=== PATIENT | male | born 1970 | race Caucasian/White ===

== ENCOUNTER 2017-03-18 17:35 | Emergency (ER) | payer MEDICAID ==
[~2017-03-18] VITALS: Ht 165.1 cm; Wt 81.4 kg
[2017-03-18] MEDS ORDERED: BUPIVACAINE HCL/PF 0.25% 10 ML VIAL INJ ONE (22:00)
[2017-03-18] MEDS ORDERED: LIDOCAINE HCL 1% 20 ML VIAL INJ ONE (22:00)
[2017-03-18] MEDS ORDERED: LIDOCAINE HCL 1% 10 ML VIAL INJ ONE (22:15)
[2017-03-18] MEDS ORDERED: POVIDONE-IODINE 10% 120 ML SOLUTION TP ONE (23:45)
[2017-03-19 00:55] VITALS: BP 140/77
[2017-03-19] MEDS ORDERED: HYDROCODONE/ACETAMINOPHEN 5-325 MG TABLET PO ONE (01:15)
== END 2017-03-19 01:18 | disposition home or self-care (01) ==
LOC: EMS 17:38
DX: S52.591A Other fractures of lower end of right radius, initial encounter for closed fracture (principal); Z88.1 Allergy status to other antibiotic agents; W19.XXXA Unspecified fall, initial encounter; Y93.89 Activity, other specified; Y92.89 Other specified places as the place of occurrence of the external cause; Y99.8 Other external cause status
CPT/HCPCS: 25605; 73110; 99284; J3490 ×2

== ENCOUNTER 2018-06-08 21:12 | Emergency (ER) | payer SELFPAY ==
[~2018-06-08] VITALS: Ht 165.1 cm; Wt 81.8 kg
[2018-06-08 23:00] VITALS: BP 128/79
== END 2018-06-08 23:24 | disposition home or self-care (01) ==
LOC: EMS 21:13
DX: S83.91XA Sprain of unspecified site of right knee, initial encounter (principal); M25.461 Effusion, right knee; Z88.1 Allergy status to other antibiotic agents; X50.0XXA Overexertion from strenuous movement or load, initial encounter; Y93.89 Activity, other specified; Y92.89 Other specified places as the place of occurrence of the external cause; Y99.8 Other external cause status